=== PATIENT | male | born 2000 | race Caucasian/White ===

== ENCOUNTER 2020-11-11 14:29 | Emergency (ER) | payer MEDICAID, OTHER ==
--- NOTE | 2020-11-11 15:12 | EDM.PDOC ---
ED HPI GENERAL MEDICAL PROBLEM - General Chief Complaint: Respiratory Problem Stated Complaint: LOSS OF CONCIOUSNESS Time Seen by Provider: 11/11/20 14:36 - History of Present Illness INITIAL COMMENTS - FREE TEXT/NARRATIVE: 19-year-old male presents with cough and syncope. Patient states that he has a history of cough related syncope episodes typically comprised of a coughing fit combined with hyperventilation followed by syncope. He has had 3 or 4 episodes. He last had an episode yesterday at a store. He had a very typical episode and then woke up with people around him. His last episode prior to this was a week ago in [facility]. Patient will be in town for 30 days. He states one of his relatives diagnosed with chronic cough. He recently completed a Holter monitor and is awaiting the results of that. He has no chest pain or shortness of breath he has no symptoms at this time. He states that he normally takes albuterol as well as a Phenergan codeine syrup. However, he does not currently have these medications. His mother is a pharmacist and he called her but she informed him that she could not mail these medicines across state lines. The patient has no abdominal pain no vomiting. He feels well at this time no fevers no myalgias no arthralgias. Patient states that he tried to get into a primary care clinic but he did not take his state insurance and cannot afford the $220 charge. Thoracic cavity, lungs Pain Score (Numeric/FACES): 8 - Related Data Allergies Allergy/AdvReac Type Severity Reaction Status Date / Time No Known Allergies Allergy Verified 11/11/20 14:59 Home Meds: Home Meds . [No Known Home Meds] 11/11/20 [History] ED ROS GENERAL - Review of Systems Review Of Systems: See Below Free Text/Narrative/Comment: General: No fever. Skin: No rash. Eyes: No vision problems. ENT: No sore throat. Neck: No neck stiffness. Respiratory: No shortness of breath. Cardiac: No chest pain. Gastrointestinal: No nausea, vomiting or abdominal pain. Urinary: No dysuria. Musculoskeletal: No myalgias/arthralgias. Neurologic: No headache. ED EXAM, GENERAL - Physical Exam Exam: See Below Free Text/Narrative:: General Appearance: No acute distress, appears comfortable Skin: No rash HEENT: Normocephalic/atraumatic, sclera anicteric, mucous membranes moist Neck: Normal range of motion Chest and Lungs: Bilateral breath sounds, clear to auscultation Cardiovascular: Regular rate and rhythm, no murmur Abdomen: Soft, non-tender Back: Normal Musculoskeletal: No edema or tenderness Neurologic: Awake, alert, no obvious deficits, moving all extremities Psychiatric: Appropriate, cooperative #1 Interpretation EKG Date: 11/11/20 Time: 15:35 EKG Interpretation Comments: Sinus rhythm rate of 77 right axis deviation could simply be age-related. No acute ischemia QTC 417 Course - Vital Signs Last Recorded V/S: Last Vital Signs Temp 99.2 F 11/11/20 14:55 Pulse 100 11/11/20 14:55 Resp 20 11/11/20 14:55 BP 145/112 H 11/11/20 14:55 Pulse Ox 97 11/11/20 14:55 - Orders/Labs/Meds Orders: Active Orders 24 hr Category Date Time Status EKG Documentation Completion [RC] STAT Care 11/11/20 15:08 Active Departure - Departure Time of Disposition: 16:12 Disposition: Home, Self-Care 01 Condition: Good Clinical Impression: Cough syncope - Discharge Information *PRESCRIPTION DRUG MONITORING PROGRAM REVIEWED*: Yes *COPY OF PRESCRIPTION DRUG MONITORING REPORT IN PATIENT CAMPBELL: No Instructions: Cough, Adult Forms: ED Department Discharge Additional Instructions: Please continue to follow-up with your doctors in [place]. If this begins to happen more frequently or you have any other symptoms that concern you please call your doctor right away or return to the ER. The following information is given to patients seen in the emergency department who are being discharged to home. This information is to outline your options for follow-up care. We provide all patients seen in our emergency department with a follow-up referral. The need for follow-up, as well as the timing and circumstances, are variable depending upon the specifics of your emergency department visit. If you don't have a primary care physician on staff, we will provide you with a referral. We always advise you to contact your personal physician following an emergency department visit to inform them of the circumstance of the visit and for follow-up with them and/or the need for any referrals to a consulting sp ecialist. The emergency department will also refer you to a specialist when appropriate. This referral assures that you have the opportunity for follow-up care with a specialist. All of these measure are taken in an effort to provide you with optimal care, which includes your follow-up. Under all circumstances we always encourage you to contact your private physician who remains a resource for coordinating your care. When calling for follow-up care, please make the office aware that this follow-up is from your recent emergency room visit. If for any reason you are refused follow-up, please contact the [facility] Emergency Department at and asked to speak to the emergency department charge nurse. Sepsis Event Note (ED) - Evaluation Sepsis Screening Result: No Definite Risk - Focused Exam Vital Signs: Vital Signs Temp Pulse Resp BP Pulse Ox 11/11/20 14:55 99.2 F 100 20 145/112 H 97 - My Orders Last 24 Hours: My Active Orders 11/11/20 15:08 EKG Documentation Completion [RC] STAT - Assessment/Plan Last 24 Hours: My Active Orders 11/11/20 15:08 EKG Documentation Completion [RC] STAT Assessment:: 19-year-old male presenting with episodic cough associated with syncope. Vital signs right now are normal lungs are clear. Patient seems earnest and honest in his reports to me. Review of the prescription monitoring database across multiple states reveals no controlled substances. Given lack of prior documentation here EKG to ensure sinus rhythm has been ordered as well as chest x-ray to exclude pneumonia or other focal process. If these are unremarkable albuterol inhaler will be provided as well as a short prescription for Phenergan codeine. EKG and CXR are without acutely concerning finding. Pt has ongoing outpatient f/u through his MDs in [place]. Pt is asymptomatic at this time. Pt discharged.
--- NOTE | 2020-11-11 16:10 | CR ---
INDICATION: Chronic coughing for 6 months. TECHNIQUE: Two-view chest. COMPARISON: None. FINDINGS: Clear lungs. Normal heart size. Pectus excavatum deformity. No acute rib or sternal fracture identified. IMPRESSION: Pectus excavatum deformity. The examination is otherwise negative. Dictated by Yrn Ernst MD @ Nov 11 2020 4:04PM Signed by Dr. Yrn Ernst @ Nov 11 2020 4:08PM
[2020-11-11] MEDS ORDERED: Albuterol 8 GM Inhaler INH ONE (16:21)
[2020-11-11] MEDS ORDERED: Albuterol HFA 18 Gm Inhaler INH ONE (16:22)
== END 2020-11-11 16:30 | disposition home or self-care (01) ==
LOC: MW.ED 14:29
DX: R05 Cough (principal); R55 Syncope and collapse
CPT/HCPCS: 71046; 93005; 99284; A9270; 93010; 99283; J3535-GY

== ENCOUNTER 2020-11-27 17:51 | Emergency (ER) | payer MEDICAID ==
--- NOTE | 2020-11-27 17:59 | EDM.PDOC ---
<Dez Alejandro - Last Filed: 11/27/20 18:45> ED HPI GENERAL MEDICAL PROBLEM - General Chief Complaint: Drug or Alcohol Abuse Stated Complaint: OVERDOSE Time Seen by Provider: 11/27/20 17:57 Source of Information: Reports: Patient, EMS History Limitations: Reports: No Limitations - History of Present Illness INITIAL COMMENTS - FREE TEXT/NARRATIVE: Patient is a 19-year-old male who presents today as a possible drug overdose. Patient states at home that he can get a Percocet 30 mg from her friend and small to for the first time. Patient became unresponsive and his girlfriend was concerned and felt like he did have a pulse and started CPR. EMS got there patient was given Narcan intranasally by the police officers x2 and also IV 4 mg of a total of 8 mg. Patient is now awake and states he feels back to his baseline patient has no complaints at the moment. Patient denies trying to hurt himself. - Related Data Allergies Allergy/AdvReac Type Severity Reaction Status Date / Time No Known Allergies Allergy Verified 11/27/20 17:54 Home Meds: Home Meds Naloxone HCl [Narcan] 4 mg NS ATDISCHARGE PRN #2 spray 11/27/20 [Rx] Past Medical History Other Respiratory History: Reports chronic cough - Infectious Disease History Infectious Disease History: Reports: Chicken Pox Social & Family History - Family History Family Medical History: No Pertinent Family History - Caffeine Use Caffeine Use: Reports: Energy Drinks, Soda ED ROS GENERAL - Review of Systems Review Of Systems: See Below Constitutional: Reports: No Symptoms HEENT: Reports: No Symptoms Respiratory: Reports: No Symptoms Cardiovascular: Reports: No Symptoms Endocrine: Reports: No Symptoms GI/Abdominal: Reports: No Symptoms : Reports: No Symptoms Musculoskeletal: Reports: No Symptoms Skin: Reports: No Symptoms Neurological: Reports: No Symptoms Psychiatric: Reports: No Symptoms Hematologic/Lymphatic: Reports: No Symptoms Immunologic: Reports: No Symptoms ED EXAM, GENERAL - Physical Exam Exam: See Below Exam Limited By: No Limitations General Appearance: Alert, WD/WN, No Apparent Distress Eye Exam: Bilateral Eye: EOMI, PERRL Respiratory/Chest: No Respiratory Distress, Lungs Clear, Normal Breath Sounds Cardiovascular: Normal Peripheral Pulses, Regular Rate, Rhythm GI/Abdominal: Normal Bowel Sounds, Soft, Non-Tender Extremities: Normal Inspection, Normal Range of Motion Neurological: Alert, Oriented, CN II-XII Intact, Normal Cognition #1 Interpretation EKG Date: 11/27/20 Time: 18:00 Rhythm: NSR Rate (Beats/Min): 94 ST-T: Normal Course - Re-Assessments/Exams Free Text/Narrative Re-Assessment/Exam: 11/27/20 18:45 Has been stable in the ED labs have been reviewed. We will continue to monitor patient patient seen to stay awake for the next 2 hours will be discharged home. Patient will be signed out to the oncoming attending pending observation. Departure - Departure Time of Disposition: 18:47 Disposition: Still A Patient 30 Condition: Good Clinical Impression: Opioid overdose, Drug abuse - Discharge Information *PRESCRIPTION DRUG MONITORING PROGRAM REVIEWED*: Not Applicable *COPY OF PRESCRIPTION DRUG MONITORING REPORT IN PATIENT CAMPBELL: Not Applicable Prescriptions: Naloxone HCl [Narcan] 4 mg NS ATDISCHARGE PRN #2 spray PRN Reason: Drug overdose Instructions: Accidental Drug Poisoning, Adult Referrals: PCP,None [Primary Care Provider] - Forms: ED Department Discharge Additional Instructions: The following information is given to patients seen in the emergency department who are being discharged to home. This information is to outline your options for follow-up care. We provide all patients seen in our emergency department with a follow-up referral. The need for follow-up, as well as the timing and circumstances, are variable depending upon the specifics of your emergency department visit. If you don't have a primary care physician on staff, we will provide you with a referral. We always advise you to contact your personal physician following an emergency department visit to inform them of the circumstance of the visit and for follow-up with them and/or the need for any referrals to a consulting specialist. The emergency department will also refer you to a specialist when appropriate. This referral assures that you have the opportunity for follow-up care with a specialist. All of these measure are taken in an effort to provide you with optimal care, which includes your follow-up. Under all circumstances we always encourage you to contact your private physician who remains a resource for coordinating your care. When calling for follow-up care, please make the office aware that this follow-up is from your recent emergency room visit. If for any reason you are refused follow-up, please contact the [facility] Emergency Department at and asked to speak to the emergency department charge nurse. Please follow up with your primary care physician. If you do not have a primary care physician, see below: [facility] [address], [place] [id number] [facility] [address] [place] [address] [facility] [address] [place] [address] You were seen today for possible drug overdose. You were given Narcan. We observed in the ER and you stayed awake for. 4 hours. We recommend that you not take any more drugs we have also sent home with a Narcan prescription as well giving other concerns complaints please return to the ED. - Assessment/Plan Plan: Patient is a 19-year-old male who presents today for possible drug overdose. Patient states that he did what he thinks is 30 mg of Percocet. Patient was given Narcan intranasally and IV is now awake and back to baseline. Will observe patient and reassess. <Isra Perdomo - Last Filed: 11/27/20 19:40> Course - Vital Signs Last Recorded V/S: Last Vital Signs Temp 97.7 F 11/27/20 17:54 Pulse 96 11/27/20 18:38 Resp 17 11/27/20 18:38 BP 135/69 11/27/20 18:38 Pulse Ox 98 11/27/20 18:38 - Orders/Labs/Meds Orders: Active Orders 24 hr Category Date Time Status EKG 12 Lead [EKG Documentation Completion] [RC] STAT Care 11/27/20 18:51 Active Labs: Laboratory Tests 11/27/20 11/27/20 11/27/20 Range/Units 18:01 18:01 19:00 WBC 5.82 (4.0-11.0) K/uL RBC 4.68 (4.50-5.90) M/uL Hgb 14.5 (13.0-17.0) g/dL Hct 43.6 (38.0-50.0) % MCV 93.2 (80.0-98.0) fL MCH 31.0 (27.0-32.0) pg MCHC 33.3 (31.0-37.0) g/dL RDW Std Deviation 46.0 (28.0-62.0) fl RDW Coeff of Sadiq 14 (11.0-15.0) % Plt Count 227 (150-400) K/uL MPV 10.30 (7.40-12.00) fL Neut % (Auto) 68.8 (48.0-80.0) % Lymph % (Auto) 24.9 (16.0-40.0) % [place] % (Auto) 3.6 (0.0-15.0) % Eos % (Auto) 2.4 (0.0-7.0) % Baso % (Auto) 0.3 (0.0-1.5) % Neut # (Auto) 4.0 (1.4-5.7) K/uL Lymph # (Auto) 1.5 (0.6-2.4) K/uL [place] # (Auto) 0.2 (0.0-0.8) K/uL Eos # (Auto) 0.1 (0.0-0.7) K/uL Baso # (Auto) 0.0 (0.0-0.1) K/uL Nucleated RBC % 0.0 /100WBC Nucleated RBCs # 0 K/uL Sodium 140 (136-148) mmol/L Potassium 3.6 (3.5-5.1) mmol/L Chloride 101 (98-107) mmol/L Carbon Dioxide 28.3 (21.0-32.0) mmol/L BUN 9 (7.0-18.0) mg/dL Creatinine 1.0 (0.8-1.3) mg/dL Est Cr Clr Drug Dosing 124.36 mL/min Estimated GFR (MDRD) > 60.0 ml/min Glucose 202 H (74-106) mg/dL Calcium 8.2 L (8.5-10.1) mg/dL Phosphorus 3.5 (2.6-4.7) mg/dL Magnesium 1.9 (1.8-2.4) mg/dL Total Bilirubin 0.5 (0.2-1.0) mg/dL AST 49 H (15-37) IU/L ALT 44 (14-63) IU/L Alkaline Phosphatase 101 (46-116) U/L Creatine Kinase 227 (26-308) U/L Total Protein 6.7 (6.4-8.2) g/dL Albumin 3.6 (3.4-5.0) g/dL Globulin 3.1 (2.6-4.0) g/dL Albumin/Globulin Ratio 1.2 (0.9-1.6) Salicylates 0.1 (0-20) mg/dL Urine Opiates Screen NEGATIVE (NEGATIVE) Ur Oxycodone Screen NEGATIVE (NEGATIVE) Urine Methadone Screen NEGATIVE (NEGATIVE) Acetaminophen <2.0 ug/mL Ur Barbiturates Screen NEGATIVE (NEGATIVE) Ur Phencyclidine Scrn NEGATIVE (NEGATIVE) Ur Amphetamine Screen NEGATIVE (NEGATIVE) U Methamphetamines Scrn NEGATIVE (NEGATIVE) U Benzodiazepines Scrn NEGATIVE (NEGATIVE) U Cocaine Metab Screen NEGATIVE (NEGATIVE) U Marijuana (THC) Screen POSITIVE (NEGATIVE) Ethyl Alcohol < 3.0 mg/dL - Re-Assessments/Exams Free Text/Narrative Re-Assessment/Exam: 11/27/20 19:37 After prolonged observation in the ER, he is clinically sober and lucid and back to baseline mentation per his girlfriend, he is currently stable for discharge. I performed a repeat exam and did not appreciate new abnormal findings. Patient exhibits normal vital signs and has a normal gait on road test. He denies suicidality. I advised the patient to return to the ER for reevaluation if symptoms worsened, including fever, worsening pain, or any other worrisome symptoms. I instructed the patient to follow up with their PCP within 2-3 days. Sepsis Event Note (ED) - Focused Exam Vital Signs: Vital Signs Temp Pulse Resp BP Pulse Ox 11/27/20 18:38 96 17 135/69 98 11/27/20 18:22 98 19 107/60 99 11/27/20 17:54 97.7 F 97 24 H 146/85 H 99
[2020-11-27 18:38] LABS: ACETAMINOPHEN <2.0 ug/mL; BLOOD UREA NITROGEN,BUN 9 mg/dL (7.0-18.0); CARBON DIOXIDE,CO2 28.3 mmol/L (21.0-32.0); CHLORIDE,CL 101 mmol/L (98-107); GLUCOSE RANDOM 202 mg/dL (74-106); POTASSIUM,K 3.6 mmol/L (3.5-5.1); SODIUM,NA 140 mmol/L (136-148)
== END 2020-11-27 19:50 | disposition home or self-care (01) ==
LOC: MW.ED 17:51
DX: T40.2X1A Poisoning by other opioids, accidental (unintentional), initial encounter (principal); F12.10 Cannabis abuse, uncomplicated
CPT/HCPCS: 36415; 80053; 80143; 80179; 80305-QW; 80307; 82550; 83735; 84100; 85025; 93005; 93010; 99283; 99284-25